=== PATIENT | female | born 1995 | race Caucasian/White ===

== ENCOUNTER 2019-07-31 18:55 | Observation (INO) | payer MEDICAID, OTHER ==
[~2019-07-31] VITALS: Ht 162.6 cm; Wt 57.2 kg
[2019-07-31] MEDS ORDERED: PREN-380 PO (20:02)
[2019-07-31] MEDS ORDERED: BETAMETH ACET/BETAMETH NA PH 30 MG/5 ML VIAL IM SCH (20:15)
[2019-07-31 20:30] LABS: BASOPHILS % (AUTO) 0.5 % (0.0-2.0); EOSINOPHILS % (AUTO) 0.4 % (0.0-4.0); HEMATOCRIT 28.9 % (36-48); HEMOGLOBIN 10.2 g/dL (12.0-16.0); LYMPHOCYTES # (AUTO) 1.8 K/uL (2.5-16.5); LYMPHOCYTES % (AUTO) 20.3 % (20.5-51.1); MEAN CORPUSCULAR HEMOGLOBIN 33 pg (27-31); MEAN CORPUSCULAR HGB CONC 35 g/dL (33-37); MEAN CORPUSCULAR VOLUME 92.7 fL (80-94); MONOCYTES # (AUTO) 0.7 K/uL (0.8-1.0); MONOCYTES % (AUTO) 8.5 % (1.7-9.3); NEUTROPHILS # (AUTO) 6.1 K/uL (1.8-7.7); NEUTROPHILS % (AUTO) 70.3 % (42.2-75.2); PLATELET COUNT (AUTO) 217 K/uL (140-450); RED BLOOD CELL COUNT(AUTO) 3.11 MIL/uL (4.20-5.40); RED CELL DISTRIBUTION WIDTH 12.3 % (11.6-13.7); WHITE BLOOD COUNT (AUTO) 8.7 K/uL (4.8-10.8)
[2019-07-31 20:32] LABS: BILIRUBIN,URINE NEGATIVE (NEGATIVE); BLOOD, URINE 3+ (NEGATIVE); COLOR,URINE YELLOW (YELLOW); LEUKOCYTE ESTERASE ,URINE TRACE (NEGATIVE); NITRITE, URINE NEGATIVE (NEGATIVE); UGLUCOSE NEGATIVE (NEGATIVE)
[2019-07-31 20:33] LABS: APPEARANCE,URINE HAZY (CLEAR)
[2019-07-31 20:41] LABS: RBC,URINE 0-5 /HPF (0-5); WBC,URINE 0-5 /HPF (0-5)
[2019-07-31] MEDS ORDERED: NACL 0.9% 1,000 ML IV SCH (22:20)
[2019-07-31] MEDS ORDERED: cefTRIAXone 1,000 MG VIAL ONE (22:27)
[2019-08-01] MEDS ORDERED: PREN-380 PO (20:43)
== END 2019-08-01 00:52 | disposition home or self-care (01) ==
LOC: MLD 18:55
PROVIDERS: ADMIT Obstetrics & Gynecology; ATTEND Obstetrics & Gynecology
DX: O46.92 Antepartum hemorrhage, unspecified, second trimester (principal); O99.89 Other specified diseases and conditions complicating pregnancy, childbirth and the puerperium; G89.29 Other chronic pain; M54.5 Low back pain; Z3A.24 24 weeks gestation of pregnancy
CPT/HCPCS: 36415; 76805; 76817; 81001; 85025; 86886; 86900; 86901; 87210; 96365; 96372; G0378; J0696; J0702; Q0092; J7060

== ENCOUNTER 2019-08-01 20:15 | Observation (INO) | payer MEDICAID, OTHER ==
[~2019-08-01] VITALS: Ht 162.6 cm; Wt 57.2 kg
[~2019-08-01 20:15] MED LIST: PREN-380 PO
[2019-08-01] MEDS ORDERED: PREN-380 PO (20:43)
[2019-08-01] MEDS ORDERED: BETAMETH ACET/BETAMETH NA PH 30 MG/5 ML VIAL IM SCH (20:45)
== END 2019-08-01 21:30 | disposition home or self-care (01) ==
LOC: MLD 20:15
PROVIDERS: ADMIT Obstetrics & Gynecology; ATTEND Obstetrics & Gynecology
DX: O62.9 Abnormality of forces of labor, unspecified (principal); Z3A.24 24 weeks gestation of pregnancy
CPT/HCPCS: 96372; G0378; J0702

== ENCOUNTER 2019-10-16 23:09 | Observation (INO) | payer OTHER ==
[2019-10-17] MEDS ORDERED: LACTATED RINGERS 1,000 ML IV SCH (01:00)
[2019-10-17 01:28] LABS: APPEARANCE,URINE CLOUDY (CLEAR); BILIRUBIN,URINE NEGATIVE (NEGATIVE); BLOOD, URINE 3+ (NEGATIVE); COLOR,URINE YELLOW (YELLOW); LEUKOCYTE ESTERASE ,URINE TRACE (NEGATIVE); NITRITE, URINE NEGATIVE (NEGATIVE); UGLUCOSE NEGATIVE (NEGATIVE)
[2019-10-17 01:44] LABS: BASOPHILS % (AUTO) 0.5 % (0.0-2.0); EOSINOPHILS % (AUTO) 0.5 % (0.0-4.0); HEMATOCRIT 31.1 % (36-48); HEMOGLOBIN 10.8 g/dL (12.0-16.0); LYMPHOCYTES # (AUTO) 2.2 K/uL (2.5-16.5); LYMPHOCYTES % (AUTO) 27.5 % (20.5-51.1); MEAN CORPUSCULAR HEMOGLOBIN 32 pg (27-31); MEAN CORPUSCULAR HGB CONC 35 g/dL (33-37); MONOCYTES # (AUTO) 0.9 K/uL (0.8-1.0); MONOCYTES % (AUTO) 11.1 % (1.7-9.3); NEUTROPHILS # (AUTO) 4.8 K/uL (1.8-7.7); NEUTROPHILS % (AUTO) 60.4 % (42.2-75.2); PLATELET COUNT (AUTO) 235 K/uL (140-450); RED BLOOD CELL COUNT(AUTO) 3.42 MIL/uL (4.20-5.40); WHITE BLOOD COUNT (AUTO) 7.9 K/uL (4.8-10.8)
[2019-10-17 01:46] LABS: WBC,URINE 0-5 /HPF (0-5)
[2019-10-17 01:47] LABS: URINE AMORPHOUS URATE 2+ /HPF (None Seen)
[2019-10-17 01:47] LABS: ALBUMIN 2.7 g/dL (3.4-5.0); ANION GAP 15.9 (8-16); CARBON DIOXIDE 21.2 mmol/L (21-32); CREATININE 0.6 mg/dL (0.6-1.3); POTASSIUM 4.1 mmol/L (3.5-5.1); TOTAL BILIRUBIN 0.4 mg/dL (0.0-1.0)
== END 2019-10-17 01:22 | disposition left against medical advice (07) ==
LOC: MLD 23:09
PROVIDERS: ADMIT Obstetrics & Gynecology; ATTEND Obstetrics & Gynecology
DX: O46.93 Antepartum hemorrhage, unspecified, third trimester (principal); O62.9 Abnormality of forces of labor, unspecified; Z3A.35 35 weeks gestation of pregnancy
CPT/HCPCS: 36415; 80053; 81001; 85025; 86886; 86900; 86901; 87086; G0378; 59025

== ENCOUNTER 2019-10-20 10:47 | Observation (INO) | payer OTHER ==
[~2019-10-20] VITALS: Ht 162.6 cm; Wt 68.0 kg
[2019-10-20 12:36] VITALS: BP 123/79
[2019-10-20 15:17] LABS: BASOPHILS % (AUTO) 0.3 % (0.0-2.0); EOSINOPHILS % (AUTO) 0.2 % (0.0-4.0); HEMATOCRIT 33.6 % (36-48); HEMOGLOBIN 11.5 g/dL (12.0-16.0); LYMPHOCYTES # (AUTO) 1.7 K/uL (2.5-16.5); MEAN CORPUSCULAR HEMOGLOBIN 31 pg (27-31); MEAN CORPUSCULAR HGB CONC 34 g/dL (33-37); MEAN CORPUSCULAR VOLUME 91.1 fL (80-94); MONOCYTES # (AUTO) 0.6 K/uL (0.8-1.0); MONOCYTES % (AUTO) 6.7 % (1.7-9.3); NEUTROPHILS # (AUTO) 6.7 K/uL (1.8-7.7); NEUTROPHILS % (AUTO) 73.8 % (42.2-75.2); PLATELET COUNT (AUTO) 247 K/uL (140-450); RED BLOOD CELL COUNT(AUTO) 3.69 MIL/uL (4.20-5.40); RED CELL DISTRIBUTION WIDTH 13.3 % (11.6-13.7); WHITE BLOOD COUNT (AUTO) 9.1 K/uL (4.8-10.8)
== END 2019-10-20 18:54 | disposition left against medical advice (07) ==
LOC: MLD 10:47 → MFCC 11:17
PROVIDERS: ADMIT Obstetrics & Gynecology; ATTEND Obstetrics & Gynecology
DX: O46.93 Antepartum hemorrhage, unspecified, third trimester (principal); Z20.828 Contact with and (suspected) exposure to other viral communicable diseases; O23.43 Unspecified infection of urinary tract in pregnancy, third trimester; Z3A.36 36 weeks gestation of pregnancy
CPT/HCPCS: 36415; 76805; 76817; 85025; 85384; 86886; 86900; 86901; G0378; Q0092; U0003

== ENCOUNTER 2019-11-01 21:50 | Observation (INO) | payer OTHER ==
[~2019-11-01] VITALS: Ht 162.6 cm; Wt 69.9 kg
== END 2019-11-01 23:25 | disposition home or self-care (01) ==
LOC: MLD 21:50
PROVIDERS: ADMIT Obstetrics & Gynecology; ATTEND Obstetrics & Gynecology
DX: O62.9 Abnormality of forces of labor, unspecified (principal); Z3A.38 38 weeks gestation of pregnancy
CPT/HCPCS: 59025; G0378

== ENCOUNTER 2019-11-02 05:40 | Inpatient (IN) | payer OTHER ==
[~2019-11-02] VITALS: Ht 162.6 cm; Wt 69.9 kg
[2019-11-02] MEDS ORDERED: LACTATED RINGERS 1,000 ML IV SCH (08:27)
[2019-11-02] MEDS ORDERED: METHYLERGONOVINE 0.2 MG/ML AMP IM PRN ×2 (08:30→20:35)
[2019-11-02] MEDS ORDERED: MORPHINE PRES FREE 10 MG/10 ML AMP IV PRN (08:30)
[2019-11-02] MEDS ORDERED: CARBOPROST 250 MCG/ML AMP IM PRN (08:30)
[2019-11-02 09:11] LABS: BASOPHILS % (AUTO) 0.3 % (0.0-2.0); EOSINOPHILS % (AUTO) 0.2 % (0.0-4.0); HEMATOCRIT 34.3 % (36-48); HEMOGLOBIN 11.8 g/dL (12.0-16.0); LYMPHOCYTES # (AUTO) 1.6 K/uL (2.5-16.5); LYMPHOCYTES % (AUTO) 14.8 % (20.5-51.1); MEAN CORPUSCULAR HEMOGLOBIN 31 pg (27-31); MEAN CORPUSCULAR HGB CONC 34 g/dL (33-37); MEAN CORPUSCULAR VOLUME 90.8 fL (80-94); MONOCYTES # (AUTO) 0.6 K/uL (0.8-1.0); MONOCYTES % (AUTO) 5.9 % (1.7-9.3); NEUTROPHILS # (AUTO) 8.4 K/uL (1.8-7.7); NEUTROPHILS % (AUTO) 78.8 % (42.2-75.2); PLATELET COUNT (AUTO) 217 K/uL (140-450); RED BLOOD CELL COUNT(AUTO) 3.78 MIL/uL (4.20-5.40); RED CELL DISTRIBUTION WIDTH 13.7 % (11.6-13.7); WHITE BLOOD COUNT (AUTO) 10.6 K/uL (4.8-10.8)
--- NOTE | 2019-11-02 09:18 | NUR ---
PATIENT HAS BEEN SCREENED AND CATEGORIZED LOW NUTRITION RISK. PATIENT WILL BE SEEN WITHIN 7 DAYS OF ADMISSION. 11/08/[address]
[2019-11-02] MEDS ORDERED: PROMETHAZINE 25 MG/ML VIAL IVP PRN (09:45)
[2019-11-02] MEDS ORDERED: PROMETHAZINE 25 MG/ML VIAL ONE (09:46)
[2019-11-02] MEDS ORDERED: MORPHINE SULFATE 10 MG/ML VIAL ONE (09:46)
[2019-11-02 10:04] VITALS: BP 112/69
[2019-11-02 10:40] LABS: APPEARANCE,URINE HAZY (CLEAR); BILIRUBIN,URINE NEGATIVE (NEGATIVE); BLOOD, URINE 1+ (NEGATIVE); COLOR,URINE YELLOW (YELLOW); LEUKOCYTE ESTERASE ,URINE TRACE (NEGATIVE); NITRITE, URINE NEGATIVE (NEGATIVE); UGLUCOSE NEGATIVE (NEGATIVE)
[2019-11-02 10:50] LABS: BARBITURATE, URINE NEGATIVE ng/ml (NEG <=200); BENZODIAZEPINE, URINE NEGATIVE ng/mL (NEG <=200); CANNABINOID, URINE POSITIVE ng/mL (NEG <=50); COCAINE, URINE NEGATIVE ng/mL (NEG <=300); OPIATE, URINE NEGATIVE ng/mL (NEG <=2000); PHENCYCLIDINE SCREEN,URINE NEGATIVE ng/mL (NEG <=25)
[2019-11-02 10:56] LABS: RBC,URINE 0-5 /HPF (0-5)
[2019-11-02] MEDS ORDERED: OXYTOCIN 20 UNITS in LACTATED RINGERS 1,000 ML IV SCH (11:05)
[2019-11-02] MEDS ORDERED: OXYTOCIN 20 UNITS/LR PREMIX 1,000 ML IV ONE (11:11)
[2019-11-02] MEDS ORDERED: ROPIVACAINE 0.2%/NS PREMIX 200 ML EPI ONE (13:26)
[2019-11-02] MEDS ORDERED: LIDOCAINE 1% 500 MG/50 ML VIAL ONE (20:15)
[2019-11-02] MEDS ORDERED: MEASLES, MUMPS, AND RUBELLA 1 VIAL SQVAC PRN (20:35)
[2019-11-02] MEDS ORDERED: OXYTOCIN 10 UNITS/ML VIAL IM PRN (20:35)
[2019-11-02] MEDS ORDERED: DOCUSATE SODIUM 100 MG GELCAP PO PRN (20:35)
[2019-11-02] MEDS ORDERED: IBUPROFEN 600 MG TAB PO PRN (20:35)
[2019-11-02] MEDS ORDERED: bisacodyL 5 MG TABEC PO PRN (20:35)
[2019-11-02] MEDS ORDERED: SIMETHICONE 80 MG TAB.CHEW PO PRN (20:35)
[2019-11-02] MEDS ORDERED: IBUPROFEN 800 MG TAB PO PRN (20:35)
[2019-11-02] MEDS ORDERED: METHYLERGONOVINE 0.2 MG TAB PO PRN (20:35)
[2019-11-02] MEDS ORDERED: BENZOCAINE/MENTHOL 20%-0.5% 60 GM CAN TP PRN (20:35)
[2019-11-03 08:07] LABS: HEPATITIS B SURFACE ANTIGEN Negative (Negative)
[2019-11-03 08:20] LABS: HEMATOCRIT 31.2 % (36-48); HEMOGLOBIN 10.7 g/dL (12.0-16.0)
== END 2019-11-03 21:38 | disposition left against medical advice (07) | DRG 560 ==
LOC: MLD 05:40 → UNDOADMIN 05:40 → MLD 05:40 → OBSVTOIN 08:27 → MFCC 22:15
PROVIDERS: ADMIT Obstetrics & Gynecology; ATTEND Obstetrics & Gynecology
PROC: 10E0XZZ Delivery of Products of Conception, External Approach (ICD-10-PCS; principal; 2019-11-02)
PROC: 0UQGXZZ Repair Vagina, External Approach (ICD-10-PCS; 2019-11-02)
PROC: 3E0234Z Introduction of Serum, Toxoid and Vaccine into Muscle, Percutaneous Approach (ICD-10-PCS; 2019-11-02)
PROC: 3E0R3BZ Introduction of Anesthetic Agent into Spinal Canal, Percutaneous Approach (ICD-10-PCS; 2019-11-02)
PROC: 00HU33Z Insertion of Infusion Device into Spinal Canal, Percutaneous Approach (ICD-10-PCS; 2019-11-02)
DX: O77.0 Labor and delivery complicated by meconium in amniotic fluid (principal); O60.23X0 Term delivery with preterm labor, third trimester, not applicable or unspecified; Z3A.38 38 weeks gestation of pregnancy; Z37.0 Single live birth; O71.4 Obstetric high vaginal laceration alone; Z23 Encounter for immunization
CPT/HCPCS: G0378 ×3; 36415; 51702; 59409; 76815; 80305; 81001; 85018; 85025; 86592; 86762; 86886; 86900; 86901; 87086; 87340; 87653-90; 88307; C1758; J2001; J2270; J2550; J2590; J2795; J7120; Q0092